=== PATIENT | male | born 1985 | race African-American/Black ===

== ENCOUNTER 2017-04-26 07:53 | Emergency (ER) | payer SELFPAY ==
[~2017-04-26] VITALS: Ht 167.6 cm; Wt 78.9 kg
[2017-04-26] MEDS ORDERED: ACETAMINOPHEN 500MG TABLET PO ONE (09:30)
[2017-04-26 09:55] VITALS: BP 123/66
== END 2017-04-26 11:20 | disposition home or self-care (01) ==
LOC: ER 07:54
DX: H57.12 Ocular pain, left eye (principal)
CPT/HCPCS: 70486; 99284

== ENCOUNTER 2021-07-10 06:31 | Emergency (ER) | payer MEDICAID ==
[~2021-07-10] VITALS: Ht 170.2 cm; Wt 80.0 kg
[2021-07-10] MEDS ORDERED: SODIUM CHLORIDE 0.9% 1,000 ML IV SCH (09:00)
[2021-07-10] MEDS ORDERED: KETOROLAC 15MG/ML VIAL IV SCH (09:00)
[2021-07-10 09:22] LABS: BASOPHILS % 0.4 % (0.0-2.0); EOSINOPHILS % 0.8 % (0.0-5.0); HEMATOCRIT. 46.3 % (42.0-52.0); HEMOGLOBIN. 16.2 g/dL (14.0-18.0); LYMPHOCYTES % 22.8 % (20.0-50.0); MEAN CORPUSCULAR HEMOGLOBIN 31.7 pg (28.0-32.0); MEAN CORPUSCULAR VOLUME 90.5 fL (80.0-94.0); MEAN PLATELET VOLUME 8.9 fl (7.4-10.4); MONOCYTES % 9.7 % (2.0-8.0); NEUTROPHILS % 66.3 % (40.0-76.0); PLATELET 223 x1000/uL (130-400); RED BLOOD CELL COUNT 5.12 mill/uL (4.7-6.1); RED CELL DISTRIBUTION WIDTH 13.2 % (11.6-14.6)
[2021-07-10 09:30] LABS: CHLORIDE 108 mEq/L (98-107)
[2021-07-10 09:31] LABS: PROTHROMBIN TIME 11.1 sec (9.6-11.0)
[2021-07-10 09:40] LABS: CLARITY URINE CLEAR (CLEAR); COLOR URINE YELLOW (YELLOW); KETONES URINE NEGATIVE (NEGATIVE); LEUKOCYTE ESTERASE URINE NEGATIVE (NEGATIVE); NITRITE URINE NEGATIVE (NEGATIVE); OCCULT BLOOD URINE NEGATIVE (NEGATIVE); PH URINE 5.5 (4.5-8.0); PROTEIN URINE NEGATIVE (NEGATIVE); SPECIFIC GRAVITY URINE 1.022 (1.005-1.030)
[2021-07-10 09:54] VITALS: BP 132/64
[2021-07-10] MEDS ORDERED: ONDA4TAB5 MT (11:32)
[2021-07-10] MEDS ORDERED: AMOX-424 MT (11:32)
[2021-07-10] MEDS ORDERED: AMOXICILLIN/POTASSIUM CLAVULANATE 875/125MG TAB PO ONE (11:45)
== END 2021-07-10 12:09 | disposition home or self-care (01) ==
LOC: ER 06:31
DX: K52.9 Noninfective gastroenteritis and colitis, unspecified (principal); I10 Essential (primary) hypertension
CPT/HCPCS: 36415; 74176; 76870; 80053; 81003; 83690; 85025; 85610; 93976; 96361; 96374; 99285; J1885

== ENCOUNTER 2022-10-26 09:14 | Emergency (ER) | payer BC, MEDICAID, OTHER ==
[~2022-10-26] VITALS: Ht 170.2 cm; Wt 81.0 kg
[~2022-10-26 09:14] MED LIST: AMOX-424 MT; ONDA4TAB5 MT
[2022-10-26 09:46] VITALS: BP 129/97
[2022-10-26] MEDS ORDERED: IBUPROFEN 400MG TABLET PO ONE (10:00)
[2022-10-26 11:01] LABS: CLARITY URINE CLEAR (CLEAR); COLOR URINE YELLOW (YELLOW); KETONES URINE TRACE (NEGATIVE); LEUKOCYTE ESTERASE URINE NEGATIVE (NEGATIVE); NITRITE URINE NEGATIVE (NEGATIVE); OCCULT BLOOD URINE NEGATIVE (NEGATIVE); PROTEIN URINE NEGATIVE (NEGATIVE); SPECIFIC GRAVITY URINE 1.022 (1.005-1.030)
[2022-10-26 12:06] LABS: BASOPHILS % 0.4 % (0.0-2.0); EOSINOPHILS % 0.4 % (0.0-5.0); HEMATOCRIT. 46.3 % (42.0-52.0); HEMOGLOBIN. 15.5 g/dL (14.0-18.0); LYMPHOCYTES % 23.4 % (20.0-50.0); MEAN CORPUSCULAR HEMOGLOBIN 30.7 pg (28.0-32.0); MEAN CORPUSCULAR VOLUME 91.7 fL (80.0-94.0); MEAN PLATELET VOLUME 8.8 fl (7.4-10.4); MONOCYTES % 8.6 % (2.0-8.0); NEUTROPHILS % 67.2 % (40.0-76.0); PLATELET 221 x1000/uL (130-400); RED BLOOD CELL COUNT 5.05 mill/uL (4.7-6.1); RED CELL DISTRIBUTION WIDTH 13.5 % (11.6-14.6)
[2022-10-26 12:18] LABS: CHLORIDE 109 mEq/L (98-107)
[2022-10-26] MEDS ORDERED: ONDA4TAB50 MT (12:39)
[2022-10-26] MEDS ORDERED: MAG355OR21 MT (12:39)
== END 2022-10-26 13:00 | disposition home or self-care (01) ==
LOC: ER 09:14
DX: R10.33 Periumbilical pain (principal); K59.00 Constipation, unspecified; R19.7 Diarrhea, unspecified; F12.10 Cannabis abuse, uncomplicated; Z79.899 Other long term (current) drug therapy
CPT/HCPCS: 36415; 74018; 80053; 81003; 85025; 99284